=== PATIENT | female | born 1995 | race American Indian/Alaskan Native ===

== ENCOUNTER 2019-06-27 14:23 | Emergency (ER) | payer MEDICAID ==
--- NOTE | 2019-06-27 16:44 | Event Note ---
ED Screening Note Date of service: 06/27/19 Time: 16:39 ED Screening Note: 24 y o female states woke u with swollen bottom lip and vaginal d/c with odor x 2 weeks LMP: 06/22/19 denies fever,n/v/ dysuria, pelvic pain pt states she thinks its an allergic reaction This initial assessment/diagnostic orders/clinical plan/treatment(s) is/are subject to change based on patients health status, clinical progression and re- assessment by fellow clinical providers in the ED. Further treatment and workup at subsequent clinical providers discretion. Patient/guardian urged not to elope from the ED as their condition may be serious if not clinically assessed and managed. Initial orders include: benadryl flagyl wet prep?
--- NOTE | 2019-06-27 19:35 | Emergency Department Report ---
ED General Adult HPI - General Chief complaint: Abdominal Pain Stated complaint: ALLERGIC REACTION Time Seen by Provider: 06/27/19 19:32 Source: patient Mode of arrival: Ambulatory Limitations: No Limitations - History of Present Illness Initial comments: 24-year-old -Italian female comes in complaining of swelling to her lower lip that she noticed this morning. Patient states that she's been at a new job and they have been trying the pizzas topically and then woke up this morning with sore on her lip. Patient also complains of vaginal discharge. Patient denies any abdominal pain no dysuria no new sexual partner. Patient denies any nausea vomiting fever or diarrhea. -: week(s) (1 week for vaginal odor ), This morning - Related Data Previous Rx's Medication Instructions Recorded Last Taken Type Fluconazole [Diflucan] 150 mg PO QDAY #1 tablet 05/29/14 Unknown Rx Nitrofurantoin [place]/M-Cryst 100 mg PO Q12HR #14 capsule 05/29/14 Unknown Rx [Macrobid] metroNIDAZOLE [Flagyl] 500 mg PO Q8HR #14 tablet 05/29/14 Unknown Rx metroNIDAZOLE 0.75%(NF) [Metrogel 1 applicatio TP BID #1 tube 04/24/15 Unknown Rx 0.75% TOPICAL] Allergies Allergy/AdvReac Type Severity Reaction Status Date / Time venom-honey bee Allergy Shortness Verified 05/29/14 19:23 [bee venom (honey bee)] of Breath ED Review of Systems ROS: Stated complaint: ALLERGIC REACTION Other details as noted in HPI ED Past Medical Hx - Past Medical History Previous Medical History?: Yes Additional medical history: ECZEMA - Surgical History Past Surgical History?: No - Social History Smoking Status: Never Smoker - Medications Home Medications: Home Medications Medication Instructions Recorded Confirmed Last Taken Type Fluconazole [Diflucan] 150 mg PO QDAY #1 tablet 05/29/14 Unknown Rx Nitrofurantoin [place]/M-Cryst 100 mg PO Q12HR #14 capsule 05/29/14 Unknown Rx [Macrobid] metroNIDAZOLE [Flagyl] 500 mg PO Q8HR #14 tablet 05/29/14 Unknown Rx metroNIDAZOLE 0.75%(NF) [Metrogel 1 applicatio TP BID #1 tube 04/24/15 Unknown Rx 0.75% TOPICAL] ED Physical Exam - General Limitations: No Limitations General appearance: alert, in no apparent distress - Head Head exam: Present: atraumatic, normocephalic - Eye Eye exam: Present: normal appearance - ENT ENT exam: Present: mucous membranes moist - Neurological Exam Neurological exam: Present: alert, oriented X3, normal gait - Psychiatric Psychiatric exam: Present: normal affect, normal mood - Skin Skin exam: Present: warm, dry, intact, normal color. Absent: rash ED Course Vital Signs 06/27/19 06/27/19 16:21 20:00 Temperature 98.6 F 98.0 F Pulse Rate 65 77 Respiratory 18 18 Rate Blood Pressure 119/74 Blood Pressure 102/66 [Left] O2 Sat by Pulse 100 100 Oximetry ED Medical Decision Making - Medical Decision Making 24-year-old -Italian female comes in complaining of swelling to her lower lip that she noticed this morning. Patient states that she's been at a new job and they have been trying the pizzas topically and then woke up this morning with sore on her lip. Patient also complains of vaginal discharge. Patient denies any abdominal pain no dysuria no new sexual partner. Patient denies any nausea vomiting fever or diarrhea. Critical care attestation.: If time is entered above; I have spent that time in minutes in the direct care of this critically ill patient, excluding procedure time. ED Disposition Clinical Impression: Swelling of both lips, Vaginal discharge Disposition: - TO HOME OR SELFCARE Is pt being admited?: No Does the pt Need Aspirin: No Condition: Stable Instructions: Abdominal Pain (ED) Additional Instructions: Take over the counter Benadryl. Follow up with [facility] provider. Referrals: [facility] [Provider Group] - 3-5 Days [facility] [Provider Group] - 3-5 Days Forms: Work/School Release Form(ED)
[2019-06-27 20:15] VITALS: BP 102/66
== END 2019-06-27 22:00 | disposition home or self-care (01) ==
LOC: ED 14:23
DX: R22.0 Localized swelling, mass and lump, head (principal); N89.8 Other specified noninflammatory disorders of vagina
CPT/HCPCS: 99282

== ENCOUNTER 2020-06-18 13:12 | Emergency (ER) | payer MEDICAID ==
[2020-06-18 13:33] VITALS: BP 103/63
== END 2020-06-18 14:11 | disposition left against medical advice (07) ==
LOC: ED 13:12
DX: Z20.2 Contact with and (suspected) exposure to infections with a predominantly sexual mode of transmission (principal); Z53.21 Procedure and treatment not carried out due to patient leaving prior to being seen by health care provider

== ENCOUNTER 2020-06-21 07:46 | Emergency (ER) | payer SELFPAY ==
[2020-06-21 07:56] VITALS: BP 110/71
--- NOTE | 2020-06-21 08:30 | Emergency Department Report ---
ED Female HPI - General Chief complaint: Urogenital-Female Stated complaint: OTHER Time Seen by Provider: 06/21/20 08:12 Source: patient Mode of arrival: Ambulatory Limitations: No Limitations - History of Present Illness Initial comments: 25-year-old female presents to the ER today requesting trichomonas treatment. Patient states that she went to a free clinic call [facility] about 2 weeks ago for her routine yearly checkup including Pap smear and STD testing. Patient states that she was informed by the clinic that it would take about 2 weeks to get the results of all her testing. Patient states that she was informed last Sunday that her urine was positive for trichomonas. She states that she was referred by the same [facility] clinic to another clinic to get treated, but it was going to cost her $200 to get treated. Patient denies any symptoms currently. Patient states that her partner is also getting treated today. Complaint: other (Trichomonas treatment) -: Gradual - Related Data Previous Rx's Medication Instructions Recorded Last Taken Type metroNIDAZOLE [Flagyl] 500 mg PO ONCE #4 tab 06/21/20 Unknown Rx Allergies Allergy/AdvReac Type Severity Reaction Status Date / Time venom-honey bee Allergy Shortness Verified 05/29/14 19:23 [bee venom (honey bee)] of Breath ED Review of Systems ROS: Stated complaint: OTHER Other details as noted in HPI Comment: All other systems reviewed and negative Constitutional: denies: chills, fever Respiratory: denies: cough, shortness of breath, wheezing Cardiovascular: denies: chest pain, palpitations Endocrine: no symptoms reported Gastrointestinal: denies: abdominal pain, nausea, diarrhea Genitourinary: denies: urgency, dysuria, discharge Skin: denies: rash, lesions ED Past Medical Hx - Past Medical History Previous Medical History?: No Additional medical history: ECZEMA - Surgical History Past Surgical History?: No - Social History Smoking Status: Never Smoker Substance Use Type: None - Medications Home Medications: Home Medications Medication Instructions Recorded Confirmed Last Taken Type metroNIDAZOLE [Flagyl] 500 mg PO ONCE #4 tab 06/21/20 Unknown Rx ED Physical Exam - General Limitations: No Limitations General appearance: alert, in no apparent distress - Respiratory Respiratory exam: Absent: respiratory distress - Cardiovascular Cardiovascular Exam: Present: regular rate - GI/Abdominal GI/Abdominal exam: Present: soft. Absent: distended, tenderness - Neurological Exam Neurological exam: Present: alert, oriented X3, CN II-XII intact, normal gait - Psychiatric Psychiatric exam: Present: normal affect, normal mood - Skin Skin exam: Present: intact ED Course Vital Signs 06/21/20 07:52 Temperature 98.0 F Pulse Rate 70 Respiratory 16 Rate Blood Pressure 110/71 O2 Sat by Pulse 99 Oximetry Critical care attestation.: If time is entered above; I have spent that time in minutes in the direct care of this critically ill patient, excluding procedure time. ED Disposition Clinical Impression: Trichomonas infection Disposition: DC- TO HOME OR SELFCARE Is pt being admited?: No Does the pt Need Aspirin: No Condition: Stable Instructions: Trichomoniasis Additional Instructions: Take the Flagyl medications all at once. I recommend that you take it with food. I recommend that she avoid any alcohol after taking the medication. It is important that your partner also get treated. I recommend no sexual contact for 5 to 7 days after treatment. Follow-up with your primary care doctor as needed. Return to the ER if anything changes or worsens. Prescriptions: metroNIDAZOLE [Flagyl] 500 mg PO ONCE #4 tab Referrals: ELIJAH HARTMAN MD [Staff Physician] - 3-5 Days Time of Disposition: 08:32
== END 2020-06-21 09:02 | disposition home or self-care (01) ==
LOC: ED 07:46
DX: A59.9 Trichomoniasis, unspecified (principal); Z91.030 Bee allergy status; Z79.899 Other long term (current) drug therapy
CPT/HCPCS: 99282